=== PATIENT | male | born 1995 | race Caucasian/White ===

== ENCOUNTER 2021-06-17 21:50 | Emergency (ER) | payer BC ==
[~2021-06-17] VITALS: Ht 185 cm; Wt 79.0 kg
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
[2021-06-17 22:56] VITALS: BP 126/84
--- NOTE | 2021-06-17 23:13 | Diagnostic Imaging Report ---
INDICATION: Right shoulder pain AP, oblique and transscapular views of the right shoulder are obtained. FINDINGS: No acute fracture or dislocation is identified. No abnormal lytic or sclerotic focus is seen, and there is no radiopaque foreign body. IMPRESSION: No acute abnormality. Dictated by: Dictated on workstation # [id number]
== END 2021-06-17 22:56 | disposition home or self-care (01) ==
LOC: ER 21:53
DX: M24.9 Joint derangement, unspecified (principal)
CPT/HCPCS: 73030